=== PATIENT | male | born 1955 | race Two or more races ===

== ENCOUNTER → 2016-12-31 | Day surgery (SDC) | payer BC, OTHER ==
[~2016-12-31] MED LIST: HYDROmorphone 2 MG/ML VIAL IV PRN; IV RINGERS,LACTATED 1000ML 1,000 ML IV SCH; LIDOCAINE 1% 1 ML SYRINGE. ID PRN; LIDOCAINE 2% PF Vial for OR 5 ML VIAL. ONE; MORPHINE SULFATE 2 MG/ML DISP.SYRIN. IV PRN; ONDANSETRON PF 4 MG/2 ML VIAL. IV PRN; PROCHLORPERAZINE 10 MG/2 ML VIAL. IV PRN; PROPOFOL 40 ML IV ONE; fentaNYL PF VIAL 100 MCG/2 ML VIAL IV PRN
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
[2016-12-31 10:00] VITALS: BP 124/83
--- NOTE | 2017-01-03 13:53 | PATHOLOGY ---
PATHOLOGY REPORT * * * * * * * * FINAL DIAGNOSIS: Esophageal biopsy, distal esophagus: - Segment of hyperplastic squamous esophageal mucosa showing acute and chronic inflammation, consistent with reflux esophagitis. COMMENT: Sections of the distal esophageal biopsy reveal a tangentially oriented segment of hyperplastic squamous esophageal mucosa showing focal acute and chronic inflammation. The findings are consistent with reflux esophagitis. There is no evidence of Salinas's change, dysplasia, or malignancy. (JPM:mgr; 01/03/2017) REPORT ELECTRONICALLY SIGNED BY: Bud Viera M.D. DATE/TIME: 01/03/2017 13:52 * * * * * * * * GROSS PATHOLOGY: Received in formalin labeled "Rob Sosa, distal esophagus BX," is a segment of white soft tissue measuring 0.3 x 0.2 x 0.2 cm in maximum dimension. The specimen is submitted entirely in cassette A1. (CHARLENE; 01/02/2017) INITIAL CPT CODE(S): A; 23729 Professional services performed by [facility] [place] [address] Technical services performed by [facility] at [address] [place] [address]. SPECIMEN(S) RECEIVED: A.Distal esophagus biopsy CLINICAL HISTORY: Dysphagia PATIENT: ROB GOETZ /AGE: 3 1955 (Age: 61) PATIENT #: [id number] ALT CASE #: SPECIMEN COLLECTION DATE: 12/31/2016 SPECIMEN RECEIVED DATE: 12/31/2016 [facility] - [address] [place] [address] - PHONE: [phone] * * * END OF REPORT * * *
== END | disposition home or self-care (01) ==
LOC: ENDOS 08:14
PROVIDERS: ATTEND Internal Medicine Gastroenterology
DX: K21.0 Gastro-esophageal reflux disease with esophagitis (principal); K22.2 Esophageal obstruction; K44.9 Diaphragmatic hernia without obstruction or gangrene; Z72.89 Other problems related to lifestyle; Z72.0 Tobacco use
CPT/HCPCS: 43239; 43249; J2704